=== PATIENT | female | born 1980 | race Caucasian/White ===

== ENCOUNTER 2020-01-21 07:59 | Emergency (ER) | payer BC, OTHER ==
[~2020-01-21] VITALS: Ht 157.5 cm; Wt 77.1 kg
[~2020-01-21 07:59] MED LIST: CARAFATE1 GM/10 ML PO; PEPCID20 MG PO
[2020-01-21 08:09] VITALS: BP 136/79
[2020-01-21] MEDS ORDERED: ZYRTEC 10 MG TA10 MG PO (08:40)
[2020-01-21] MEDS ORDERED: ACYCLOVIR 800800 MG PO (08:40)
[2020-01-21] MEDS ORDERED: NORCO 5-325 TA1 EAC1 PO (08:40)
== END 2020-01-21 08:47 | disposition home or self-care (01) ==
LOC: M.ERS 07:59
DX: B02.9 Zoster without complications (principal)

== ENCOUNTER 2020-04-24 07:10 | Emergency (ER) | payer BC, OTHER ==
[~2020-04-24] VITALS: Ht 157.5 cm; Wt 79.4 kg
[~2020-04-24 07:10] MED LIST changes: +ACYCLOVIR 800800 MG PO; +NORCO 5-325 TA1 EAC1 PO; +ZYRTEC 10 MG TA10 MG PO
[2020-04-24] MEDS ORDERED: FLONASE 0.05%50 MCG NARES (07:18)
[2020-04-24 07:52] LABS: ABSOLUTE EOSINOPHILS 0.1 thou/uL (0.0-0.7); ABSOLUTE LYMPHOCYTES 1.9 thou/uL (0.8-5.3); ABSOLUTE MONOCYTES 0.4 thou/uL (0.0-1.2); ABSOLUTE NEUTROPHILS 3.3 thou/uL (1.6-8.1); BASOPHILS 0.3 %; EOSINOPHILS 1.1 %; HEMATOCRIT 42.2 % (37.0-47.0); HEMOGLOBIN 14.3 gm/dL (12.0-15.0); LYMPHOCYTES 32.8 %; MCH 30.6 pg (26.0-34.0); MCHC 33.9 g/dL (28.0-37.0); MONOCYTES 7.1 %; MPV 7.4 fl. (7.2-11.1); NUCLEATED RBCS 0 /100WBC; PLATELET COUNT* 310 thou/uL (150-400); POLYS 58.7 %; RBC 4.68 mil/uL (4.20-5.00); RDW-CV 13.6 % (10.5-14.5); WBC 5.7 thou/uL (4.0-11.0)
[2020-04-24 08:00] LABS: CALCIUM 8.5 mg/dL (8.5-10.1); CREATININE 0.7 mg/dL (0.6-1.3); POTASSIUM 3.8 mmol/L (3.5-5.1)
[2020-04-24 08:02] LABS: PROTIME 10.3 Seconds (9.20-11.50)
[2020-04-24 08:05] LABS: ALBUMIN 3.8 g/dL (3.4-5.0); TOTAL BILIRUBIN 0.4 mg/dL (<0.1-1.0); TOTAL PROTEIN 7.5 g/dL (6.4-8.2)
[2020-04-24] MEDS ORDERED: MEDROLDOSEPACK PO (10:09)
[2020-04-24 10:35] VITALS: BP 124/81
--- NOTE | 2020-04-24 14:12 | EKG ---
[place] [address] ELECTROCARDIOGRAM REPORT Name: AYAH MATA Room: [facility]#: [id number] Admission: 04/24/20 Attend Phys: Discharge: 04/24/20 Date of : 78 Date of Service: 04/24/20713 Report #: [id number] THIS REPORT FOR: //name// [facility] ED Test Date: 2020-04-24 Test Time: 07:14:26 Pat Name: AYAH MATA Department: Room: Gender: Structural Engineer: : 1980 Requested By: Angie Thomson Order Number: [id number] MD: Jose C Arias Measurements Intervals [place] Rate: 86 P: 14 AK: 158 QRS: -18 QRSD: 95 T: 0 QT: 370 QTc: 443 Interpretive Statements Sinus rhythm Left ventricular hypertrophy Compared to ECG 02/22/2015 11:11:42 Left ventricular hypertrophy now present Sinus tachycardia no longer present ST (T wave) deviation no longer present Electronically Signed On 04-24-2020 14:10:30 CDT by Jose C Arias [email or web address] <ELECTRONICALLY SIGNED> By: Jose C Arias MD, [facility] 04/24/20 1410 0714 0714 Jose C Arias MD, [facility] /EPI
== END 2020-04-24 10:36 | disposition home or self-care (01) ==
LOC: M.ERS 07:10
PROVIDERS: Personal Emergency Response Attendant
DX: R07.89 Other chest pain (principal); Z90.49 Acquired absence of other specified parts of digestive tract